=== PATIENT | male | born 1965 | race Caucasian/White ===

== ENCOUNTER 2024-11-03 15:52 | Emergency (ER) | payer MEDICARE ==
[~2024-11-03] VITALS: Ht 180.3 cm; Wt 80.4 kg
[~2024-11-03 15:52] MED LIST: ACETAMINOPHEN-1 EAC1 PO; BUPROPION HCL150 MG PO; CHOLESTYRAMINE P4 GM PO; CHOLESTYRAMINE R5 GM PO; CIPROFLOXACIN500 MG PO; IMITREX50 MG PO; LOSARTAN POTASS50 MG PO; MELOXICAM7.5 MG PO; METHOCARBAMOL750 MG PO; METRONIDAZOLE500 MG PO; NORCO 5-325 TA1 EACH PO; ONDANSETRON ODT4 MG PO; OXYCODON-ACETA1 EAC2 PO; PERCOCET 7.5-31 EACH PO; POTASSIUM CHLO10 MEQ PO; PROMETHAZINE HC25 M1 PO; VITAMIN D5000 UNIT PO; ZOFRAN4 MG PO; ZOLPIDEM TART12.5 MG PO; ZOLPIDEM TARTRA10 MG PO
[2024-11-03] MEDS ORDERED: GABAPENTIN100 MG PO (16:22)
[2024-11-03] MEDS ORDERED: LOSARTAN POTAS100 MG PO (16:22)
[2024-11-03 18:32] VITALS: BP 156/97
== END 2024-11-03 18:32 | disposition home or self-care (01) ==
LOC: ED 15:52
DX: I10 Essential (primary) hypertension (principal); F17.200 Nicotine dependence, unspecified, uncomplicated; Z88.5 Allergy status to narcotic agent; Z91.018 Allergy to other foods; Z98.1 Arthrodesis status; Z79.899 Other long term (current) drug therapy
CPT/HCPCS: 99283